=== PATIENT | female | born 1960 | race African-American/Black ===

== ENCOUNTER 2019-11-01 16:00 | Inpatient (IN) | payer MEDICAID ==
[~2019-11-01] VITALS: Ht 160 cm; Wt 118.8 kg
[~2019-11-01 16:00] MED LIST: BENAZEPRIL HCL20 MG ORAL; DEPAKOTE500 MG PO; HYDROCHLOROTHIA25 MG ORAL; PROLIXIN10 MG ORAL
[2019-11-01 16:12] VITALS: BP 171/67
--- NOTE | 2019-11-01 16:12 | NUR ---
ED Nurse Note: pt ambulated into ed from home CO SOB x 3-4 weeks d/t previous hx of COPD. Pt denies fever, n/v/d, cough, runny nose, chest pain. Pt HR elevated upon initial assessment with spo2 84% on RA; ERMD aware. ERmd at bedside.
--- NOTE | 2019-11-01 16:20 | NUR ---
ED Nurse Note: ekg performed by DIRECTOR OF TEACHING AND LEARNING
--- NOTE | 2019-11-01 16:36 | NUR ---
ED Nurse Note: IV fluids running, pt tolerating well. no ss of distress noted.
[2019-11-01 16:41] LABS: BASOPHILS % (AUTO) 2.6 % (0.0-2.0); EOSINOPHILS % (AUTO) 0.7 % (0.0-3.0); HEMATOCRIT 42.3 % (37.0-47.0); HEMOGLOBIN 13.2 G/DL (12.0-16.0); LYMPHOCYTES % (AUTO) 28.6 % (20.0-45.0); MEAN CORPUSCULAR VOLUME 88 FL (80-99); MONOCYTES % (AUTO) 6.8 % (1.0-10.0); NEUTROPHILS % (AUTO) 61.2 % (45.0-75.0); PLATELET COUNT 213 K/UL (150-450); WHITE BLOOD COUNT 9.2 K/UL (4.8-10.8)
--- NOTE | 2019-11-01 16:43 | NUR ---
ED Nurse Note: xray at bedside
--- NOTE | 2019-11-01 16:54 | Diagnostic Imaging Report ---
Indication: Shortness of breath Technique: One view of the chest Comparison: none Findings: The heart is enlarged. There is mild pulmonary venous congestion bilaterally. No focal airspace consolidation. No definite effusions. Impression: Cardiomegaly Mild interstitial congestion
[2019-11-01] MEDS ORDERED: Solu-MEDROL 125mg Inj IVP ONE (17:00)
[2019-11-01] MEDS ORDERED: Azithromycin 500 MG in NS 275 ML IV ONE (17:00)
[2019-11-01 17:04] LABS: ANION GAP 10 mmol/L (5-15); BLOOD UREA NITROGEN 8 mg/dL (7-18); CALCIUM 9.6 MG/DL (8.5-10.1); CARBON DIOXIDE 33 MMOL/L (21-32); CHLORIDE 103 MMOL/L (98-107); CREATININE 0.9 MG/DL (0.55-1.30); POTASSIUM 2.9 MMOL/L (3.5-5.1); SODIUM 146 MMOL/L (136-145)
[2019-11-01 17:17] LABS: ALANINE AMINOTRANSFERASE 15 U/L (12-78); ALBUMIN 3.3 G/DL (3.4-5.0); ALBUMIN/GLOBULIN RATIO 0.7 (1.0-2.7); ALKALINE PHOSPHATASE 76 U/L (46-116); ASPARTATE AMINO TRANSFERASE 18 U/L (15-37); BILIRUBIN,TOTAL 0.5 MG/DL (0.2-1.0); CKMB 1.9 NG/ML (0.0-3.6); CREATINE KINASE 170 U/L (26-308)
--- NOTE | 2019-11-01 17:20 | NUR ---
ED Nurse Note: pt moved to Ortho in stable condition.
[2019-11-01] MEDS ORDERED: KLONOPIN1 MG ORAL (17:45)
--- NOTE | 2019-11-01 17:59 | Emergency Room Report ---
History of Present Illness General Chief Complaint: Dyspnea/Respdistress Source: Patient, Medical Record Present Illness HPI 59-year-old female history of COPD, presented for shortness of breath. She said shortness of breath and cough for about 3 weeks gradually worsening. She denied any fever vomiting or abdominal pain. She denies any chest pain. She complains of intermittent wheezing but none at this time. She denies any recent travel or sick contacts. Allergies: Coded Allergies: CODEINE (Verified Allergy, Unknown, 11/01/19) COVID-19 Screening Contact w/high risk pt: No Recent Travel to affected area: No Experienced COVID-19 symptoms?: Yes COVID-19 symptoms experienced: Shortness of Breath Patient History Now: No Reviewed Nursing Documentation: PMH: Agreed; PSxH: Agreed Nursing Documentation-PMH Hx Hypertension: Yes Hx COPD: Yes Review of Systems All Other Systems: negative except mentioned in HPI Physical Exam Vital Signs Date Time Temp Pulse Resp B/P (MAP) Pulse Ox O2 Delivery O2 Flow Rate FiO2 11/01/19 16:02 97.9 70 24 171/67 (101) 81 Room Air 11/01/19 16:12 4.0 Sp02 EP Interpretation: reviewed, normal General Appearance: well appearing, mild distress Head: normocephalic, atraumatic Eyes: bilateral eye PERRL, bilateral eye EOMI ENT: hearing grossly normal, moist mucus membranes Neck: full range of motion, supple Respiratory: other - Mild respiratory distress with active coughing. Scant audible wheezing Cardiovascular #1: normal peripheral pulses, regular rate, rhythm, no murmur Gastrointestinal: non tender, soft, non-distended, no guarding Neurologic: alert, oriented x3, no focal defects Skin: normal color, warm/dry Medical Decision Making Diagnostic Impression: Primary Impression: Shortness of breath Additional Impressions: Rule out covid-19 COPD exacerbation ER Course Patient presented for shortness of breath. Differential diagnosis included but not limited to COPD exacerbation, viral syndrome, pneumonia, CHF, coronavirus infection to name a few. On exam patient in mild respiratory distress and actively coughing. She was placed on oxygen. She was hypoxic on room air. She required 5 L via nasal cannula. Chest x-ray showed cardiomegaly with interstitial prominence. Patient had no leukocytosis. I did send coronavirus testing due to patient's hypoxia and cough for the past 3 weeks. She was afebrile. Due to her hypoxia shortness of breath will admit to the telemetry floor under isolation. Patient was given steroids, azithromycin in the ER. Laboratory Tests Test 11/01/19 16:10 White Blood Count 9.2 K/UL (4.8-10.8) Red Blood Count 4.80 M/UL (4.20-5.40) Hemoglobin 13.2 G/DL (12.0-16.0) Hematocrit 42.3 % (37.0-47.0) Mean Corpuscular Volume 88 FL (80-99) Mean Corpuscular Hemoglobin 27.5 PG (27.0-31.0) Mean Corpuscular Hemoglobin Concent 31.2 G/DL (32.0-36.0) L Red Cell Distribution Width 20.0 % (11.6-14.8) H Platelet Count 213 K/UL (150-450) Mean Platelet Volume 7.8 FL (6.5-10.1) Neutrophils (%) (Auto) 61.2 % (45.0-75.0) Lymphocytes (%) (Auto) 28.6 % (20.0-45.0) Monocytes (%) (Auto) 6.8 % (1.0-10.0) Eosinophils (%) (Auto) 0.7 % (0.0-3.0) Basophils (%) (Auto) 2.6 % (0.0-2.0) H Sodium Level 146 MMOL/L (136-145) H Potassium Level 2.9 MMOL/L (3.5-5.1) L Chloride Level 103 MMOL/L (98-107) Carbon Dioxide Level 33 MMOL/L (21-32) H Anion Gap 10 mmol/L (5-15) Blood Urea Nitrogen 8 mg/dL (7-18) Creatinine 0.9 MG/DL (0.55-1.30) Estimated Glomerular Filtration Rate > 60 mL/min (>60) Glucose Level 135 MG/DL (74-106) H Lactic Acid Level Pending Calcium Level 9.6 MG/DL (8.5-10.1) Magnesium Level 1.6 MG/DL (1.8-2.4) L Total Bilirubin 0.5 MG/DL (0.2-1.0) Aspartate Amino Transferase (AST) 18 U/L (15-37) Alanine Aminotransferase (ALT) 15 U/L (12-78) Alkaline Phosphatase 76 U/L (46-116) Total Creatine Kinase 170 U/L (26-308) Creatine Kinase MB 1.9 NG/ML (0.0-3.6) Creatine Kinase MB Relative Index 1.1 Troponin I 0.009 ng/mL (0.000-0.056) Pro-B-Type Natriuretic Peptide Pending Total Protein 8.0 G/DL (6.4-8.2) Albumin 3.3 G/DL (3.4-5.0) L Globulin 4.7 g/dL Albumin/Globulin Ratio 0.7 (1.0-2.7) L EKG Diagnostic Results Rate: tachycardiac Rhythm: other - Sinus tachycardia ST Segments: other - Sinus tachycardia Chest X-Ray Diagnostic Results Chest X-Ray Diagnostic Results : Chest X-Ray Ordered: Yes # of Views/Limited/Complete: 1 View Indication: Shortness of Breath EP Interpretation: Yes Interpretation: other - Cardiomegaly, interstitial edema, no pneumothorax Electronically Signed by: Devante St MD Last Vital Signs Date Time Temp Pulse Resp B/P (MAP) Pulse Ox O2 Delivery O2 Flow Rate FiO2 11/01/19 16:12 97.9 100 24 171/67 81 Room Air 11/01/19 16:12 4.0 Status: improved Disposition: ADMITTED INPATIENT Condition: Serious Referrals: [facility],REFERRING (PCP) Devante St M.D. Nov 01, 2019 17:58
[2019-11-01 18:00] VITALS: BP 166/71
--- NOTE | 2019-11-01 18:00 | NUR ---
ED Nurse Note: received patient from mickie ochoa. patient resting in bed with no acute distress. patient ao4 vss. discussed plan of care with patient ; aware of pending admission. pt states anxiety over situation; provided therapeutic communication. patient states understanding and willingness of continuity of care. iv intact and patent; fluids running as prescribed. lactic reflex collected; sent down to lab.
[2019-11-01] MEDS ORDERED: Nitroglycerin Subl 0.4mg tab SL PRN (19:45)
[2019-11-01] MEDS ORDERED: LORazepam Inj 2mg/ml 1ml IV PRN (19:45)
[2019-11-01] MEDS ORDERED: Albuterol/Ipratropium 3ml neb HHN PRN (19:45)
--- NOTE | 2019-11-01 20:00 | NUR ---
ED Nurse Note: per ermd, pt allowed to eat. provided patient with nourishment. reassessed vitals; vss. repositioned for comfort. will continue to monitor.
[2019-11-01 20:04] VITALS: BP 142/92
[2019-11-01] MEDS: Heparin 5000 units/ml inj SUBQ SCH (21:00)
[2019-11-01] MEDS: Theophylline ER 100mg ORAL SCH (21:00)
--- NOTE | 2019-11-01 21:00 | NUR ---
TRANSFER TO FLOOR: Patient transferred to [facility] 212-1 as ordered, per joceline munoz. Report given to rocio corado. patient stable for transfer. patient ao4. nad. vss. confirmed living situation with patient; address provided is [facility]. mrsa swab collected; sent down to lab. pt refused vre cre swab. patient transported to unit via gurney with edelmira and rn. patient sent with belongings and admission packet
--- NOTE | 2019-11-01 21:55 | NUR ---
NURSE NOTES: received patient from Marcos Krishna RN. patient resting in bed with no acute distress. patient ao4 vss. discussed plan of care with patient ;pt states anxiety over situation; provided therapeutic communication.. iv intact and patent; fluids running as prescribed. Will continue to monitor pt
[2019-11-01 22:00] VITALS: BP 150/90
[2019-11-01] MEDS ORDERED: Zoysn 3.37gm in NS 100ML IVPB SCH (22:00)
[2019-11-01] MEDS ORDERED: Piperacillin/Tazobactam 2.25 GM in D5W 55 ML IV SCH (22:00)
[2019-11-01] MEDS ORDERED: Sodium Chloride for KCL Premix X 4hrs IV SCH (23:00)
[2019-11-02] VITALS: BP 138/57
[2019-11-02] MEDS: Solu-MEDROL 125mg Inj IV SCH ×5 (00:04→18:11)
[2019-11-02] MEDS ORDERED: Zoysn 3.37gm in NS 100ML IVPB ONE (03:00)
[2019-11-02 04:00] VITALS: BP 140/83
--- NOTE | 2019-11-02 07:25 | NUR ---
HAND-OFF: Report given to CATHERINE Lewis.
[2019-11-02 08:00] VITALS: BP 141/88
--- NOTE | 2019-11-02 08:57 | NUR ---
CASE MANAGEMENT:REVIEW 59 YR OLD FEMALE WALKED INTO ER CC: SOB X3 WEEKS PMH: COPD SI: COPD EXACERBATION. R/O COVID 19 97.9 70 24 171/67 81% ON RA K-2.9 BNP+7724 IS: PLACED ON 4L/NC 1L NS BOLUS IV SOLUMEDROL IV AZITHROMYCIN COVID 19 INFLUENZA A&B : TELEMETRY DCP: PATIENT IS FROM TRANSITIONAL HOUSING PLAN: AWAIT COVID 19 RESULTS DROPLET PRECAUTIONS
[2019-11-02] MEDS: Heparin 5000 units/ml inj SUBQ SCH ×2 (09:00→21:00)
[2019-11-02] MEDS: Depakote 500mg tab ORAL SCH ×3 (09:00→18:21)
[2019-11-02] MEDS: Theophylline ER 100mg ORAL SCH ×2 (09:00→21:00)
--- NOTE | 2019-11-02 09:41 | NUR ---
*-* INSURANCE *-* ALL CLINICALS AND REVIEWS HAVE BEEN FAXED TO: [facility] F: [phone]
[2019-11-02] MEDS: Zoysn 3.37gm in NS 100ML IVPB SCH ×3 (11:00→19:00)
[2019-11-02 12:00] VITALS: BP 145/83
--- NOTE | 2019-11-02 12:58 | Consultation ---
History of Present Illness General Date patient seen: Nov 02, 2019 Chief Complaint: Dyspnea/Respdistress Present Illness HPI 59 year old female with hx of COPD, HTN, humongous facial mass/tumor, psychosis presented to ER with CC of sob and dry cough. she wanted to see if she has COVID infection Allergies: Coded Allergies: CODEINE (Verified Allergy, Unknown, 11/01/19) Medication History Scheduled Benazepril Hcl* (Benazepril Hcl*), 20 MG ORAL EVERY 12 HOURS, (Reported) Clonazepam* (Klonopin*), 1 MG ORAL DAILY, (Reported) Divalproex Sodium (Depakote), 500 MG PO BID, (Reported) Fluphenazine HCl (Fluphenazine HCl), 10 MG ORAL DAILY, (Reported) Hydrochlorothiazide* (Hydrochlorothiazide*), 25 MG ORAL DAILY, (Reported) Patient History Healthcare decision maker N Resuscitation status Full Code Advanced Directive on File Past Medical/Surgical History Past Medical/Surgical History: (1) COPD (chronic obstructive pulmonary disease) (2) HTN (hypertension) Review of Systems Constitutional: Reports: no symptoms All Other Systems: negative except mentioned in HPI Physical Exam General Appearance: WD/WN, no apparent distress, other - massive right sided facial mass/turmor Lines, tubes and drains: peripheral HEENT: normocephalic, atraumatic Neck: non-tender Respiratory/Chest: chest wall non-tender, lungs clear Abdomen: normal bowel sounds, non tender Genitourinary/Rectal: normal genital exam, heme negative stool Extremities: normal range of motion Last 24 Hour Vital Signs Date Time Temp Pulse Resp B/P (MAP) Pulse Ox O2 Delivery O2 Flow Rate FiO2 11/02/19 12:00 4.0 11/02/19 08:00 97.9 94 20 141/88 (105) 97 11/02/19 08:00 4.0 11/02/19 07:45 96 11/02/19 04:00 98.7 86 21 140/83 (102) 96 11/02/19 04:00 71 11/02/19 03:55 4.0 11/02/19 00:00 77 11/02/19 00:00 4.0 11/02/19 00:00 98.8 86 22 138/57 (84) 95 11/01/19 22:25 81 11/01/19 22:00 97.7 86 24 150/90 (110) 92 11/01/19 21:52 Nasal Cannula 4.0 11/01/19 21:20 98 11/01/19 21:00 97.9 82 22 144/92 96 Nasal Cannula 4.0 11/01/19 20:04 97.9 88 22 142/92 97 Nasal Cannula 4.0 11/01/19 18:00 97.9 99 22 166/71 90 Nasal Cannula 4.0 11/01/19 16:12 97.9 100 24 171/67 81 Room Air 11/01/19 16:12 100 24 Nasal Cannula 4.0 11/01/19 16:02 97.9 70 24 171/67 (101) 81 Room Air Intake and Output 11/01/19 11/02/19 19:00 07:00 Output Total 0 ml Balance 0 ml Output Stool Total 0 ml # Voids 2 Laboratory Tests Test 11/01/19 16:10 11/01/19 18:00 White Blood Count 9.2 K/UL (4.8-10.8) Red Blood Count 4.80 M/UL (4.20-5.40) Hemoglobin 13.2 G/DL (12.0-16.0) Hematocrit 42.3 % (37.0-47.0) Mean Corpuscular Volume 88 FL (80-99) Mean Corpuscular Hemoglobin 27.5 PG (27.0-31.0) Mean Corpuscular Hemoglobin Concent 31.2 G/DL (32.0-36.0) L Red Cell Distribution Width 20.0 % (11.6-14.8) H Platelet Count 213 K/UL (150-450) Mean Platelet Volume 7.8 FL (6.5-10.1) Neutrophils (%) (Auto) 61.2 % (45.0-75.0) Lymphocytes (%) (Auto) 28.6 % (20.0-45.0) Monocytes (%) (Auto) 6.8 % (1.0-10.0) Eosinophils (%) (Auto) 0.7 % (0.0-3.0) Basophils (%) (Auto) 2.6 % (0.0-2.0) H Sodium Level 146 MMOL/L (136-145) H Potassium Level 2.9 MMOL/L (3.5-5.1) L Chloride Level 103 MMOL/L (98-107) Carbon Dioxide Level 33 MMOL/L (21-32) H Anion Gap 10 mmol/L (5-15) Blood Urea Nitrogen 8 mg/dL (7-18) Creatinine 0.9 MG/DL (0.55-1.30) Estimat Glomerular Filtration Rate > 60 mL/min (>60) Glucose Level 135 MG/DL (74-106) H Lactic Acid Level 2.20 mmol/L (0.4-2.0) H 1.40 mmol/L (0.66-2.22) Calcium Level 9.6 MG/DL (8.5-10.1) Magnesium Level 1.6 MG/DL (1.8-2.4) L Total Bilirubin 0.5 MG/DL (0.2-1.0) Aspartate Amino Transf (AST/SGOT) 18 U/L (15-37) Alanine Aminotransferase (ALT/SGPT) 15 U/L (12-78) Alkaline Phosphatase 76 U/L (46-116) Total Creatine Kinase 170 U/L (26-308) Creatine Kinase MB 1.9 NG/ML (0.0-3.6) Creatine Kinase MB Relative Index 1.1 Troponin I 0.009 ng/mL (0.000-0.056) Pro-B-Type Natriuretic Peptide 7724 pg/mL (0-125) H Total Protein 8.0 G/DL (6.4-8.2) Albumin 3.3 G/DL (3.4-5.0) L Globulin 4.7 g/dL Albumin/Globulin Ratio 0.7 (1.0-2.7) L Microbiology Date/Time Source Procedure Growth Status 11/01/19 17:45 Nasal Nares - Final Complete 11/01/19 17:45 Nasal Nares - Final Complete Height (Feet): 5 Height (Inches): 3.00 Weight (Pounds): 262 Medications Current Medications Medications (Trade) Dose Ordered Sig/Brannon Route PRN Reason Start Time Stop Time Status Last Admin Dose Admin Albuterol/ Ipratropium (Albuterol/ Ipratropium) 3 ml EVERY 4 HOURS PRN HHN dyspnea 11/01/19 19:45 11/06/19 19:44 Clonazepam (KlonoPIN) 1 mg DAILY ORAL 11/02/19 09:00 11/09/19 08:59 11/02/19 09:00 Dextrose (Dextrose 50%) 25 ml Q30M PRN IV Hypoglycemia 11/01/19 19:45 01/30/20 19:44 Dextrose (Dextrose 50%) 50 ml Q30M PRN IV Hypoglycemia 11/01/19 19:45 01/30/20 19:44 Divalproex Sodium (Depakote) 500 mg BID ORAL 11/02/19 09:00 12/17/19 08:59 11/02/19 09:00 Fluphenazine HCl (Prolixin) 10 mg DAILY ORAL 11/02/19 09:00 12/17/19 08:59 UNV Heparin Sodium (Porcine) (Heparin 5000 units/ml) 5,000 units EVERY 12 HOURS SUBQ 11/01/19 21:00 12/16/19 20:59 11/02/19 09:00 Lorazepam (Ativan 2mg/ml 1ml) 0.5 mg Q4H PRN IV For Anxiety 11/01/19 19:45 11/08/19 19:44 Methylprednisolone Sodium Succinate (Solu-MEDROL) 60 mg EVERY 6 HOURS IV 11/02/19 00:00 01/31/20 00:00 11/02/19 11:31 Nitroglycerin (Ntg) 0.4 mg Q5M X 3 DOSES PRN SL Prn Chest Pain 11/01/19 19:45 12/01/19 19:44 Ondansetron HCl (Zofran) 4 mg Q6H PRN IVP Nausea & Vomiting 11/01/19 19:45 12/01/19 19:44 Piperacillin Sod/ Tazobactam Sod 3.375 gm/Sodium Chloride 110 ml @ 27.5 mls/hr Q8H IVPB 11/02/19 11:00 11/09/19 10:59 11/02/19 11:00 Temazepam (Restoril) 15 mg HSPRN PRN ORAL Insomnia 11/01/19 21:00 11/08/19 20:59 Theophylline (Rakesh-Dur) 100 mg EVERY 12 HOURS ORAL 11/01/19 21:00 01/30/20 20:59 11/02/19 09:00 Assessment/Plan Problem List: (1) Suspected COVID-19 virus infection ICD Codes: R68.89 - Other general symptoms and signs SNOMED: 192162871 (2) COPD exacerbation ICD Codes: J44.1 - Chronic obstructive pulmonary disease with (acute) exacerbation SNOMED: 655358481 (3) HTN (hypertension) ICD Codes: I10 - Essential (primary) hypertension SNOMED: 78637545 Assessment/Plan: cardiac evaluation b/o cardiomegaly, echocardiogram respiratory treatment f/u electrolytes Karina Mg MD Nov 02, 2019 12:58
--- NOTE | 2019-11-02 13:18 | NUR ---
NURSE NOTES: Patient stating "I feel fine, I want to go home. I have COPD, but no fever and they say if you do not have fever you dont have COVID." Educated pt about covid symptoms and incubation period. RN notified Dr. Mg of pt's request to leave AMA. Called Beth Tang CM about pt wanting to leave AMA and from board and care and pending COVID, MARITA Campos stated due to these factors we cannot let her go until we have the result because she could be infecting others. Notified Dr. Mg and primary nurse CATHERINE Muhammad and CN. Sabina Bush RN to speak with patient.
--- NOTE | 2019-11-02 13:20 | Consultation ---
Consult Note Consult Note 59yo woman PMH below presents from a detention with dry cough and sob for years. Pt admitted for COVID rule out. Pt denies any change in her sob. Reports cough. Very anxious. crying and asking if she has COVID. Denies fever, chills, night sweats, chest pain, diarrhea, dysuria, rash. ROS: per above PMH: COPD HTN facial mass, reports benign for years Psychosis SHx: Lives in detention heavy smoker, quit recently denies etoh or drug use FHx: noncontributory VS: reviewed Gen: NAD. well nourished. well hydrated HEENT: anicteric sclera. MMM. large R jaw mass CV: RRR. S1+S2. no rubs or gallop. Resp: RRR. rhonchi. wheezes. unlabored. Abd: soft. normoactive BS+. no rebound. no guarding Ext: no LE edema. no clubbing. no joint deformity Neuro: AAO. follows commands. answers questions appropriately. Skin: warm. dry. nondiaphoretic Psych: anxious. tearful. Labs: reviewed Imaging: reviewed Assessment: Afebrile No leukocytosis Acute hypoxic respiratory failure flu swab negative CXR: The heart is enlarged. There is mild pulmonary venous congestion bilaterally. No focal airspace consolidation. No definite effusions. COPD HTN facial mass, reports benign for years Psychosis Plan: continue zosyn #2 SP Azithromycin f/u COVID continue COVID isolation f/u sputum cx f/u MRSA screen f/u BCx monitor temp and CBC monitor resp status DW Kevin Vickers MD Nov 02, 2019 13:20
[2019-11-02 16:00] VITALS: BP 147/101
[2019-11-02 20:00] VITALS: BP 149/71
--- NOTE | 2019-11-02 20:20 | NUR ---
NURSE NOTES: received patient from CATHERINE Muhammad. patient resting in be, appears agitated and very restless. patient ao4 vss. discussed plan of care with patient ;pt states anxiety over situation and being in hospital,. would like to leave.; provided therapeutic communication.. iv removed by patient, will reinsert. Will continue to monitor pt
--- NOTE | 2019-11-02 21:13 | NUR ---
HAND-OFF: Report given to CATHERINE Bello. Pt in stable condition. Endorsed plan of care.
--- NOTE | 2019-11-02 21:40 | History & Physical ---
History and Physical History & Physicial job # [id number] Sae Perkins MD Nov 02, 2019 21:40
[2019-11-03] VITALS: BP 160/99
[2019-11-03] MEDS: Solu-MEDROL 125mg Inj IV SCH ×4 (00:19→17:03)
[2019-11-03] MEDS: Zoysn 3.37gm in NS 100ML IVPB SCH ×3 (02:40→18:39)
[2019-11-03 04:00] VITALS: BP 144/75
--- NOTE | 2019-11-03 04:00 | History and Physical Report ---
DATE OF ADMISSION: 11/01/2019 CHIEF COMPLAINT: Shortness of breath and cough. HISTORY OF PRESENT ILLNESS: This is a 59-year-old female with past medical history significant for COPD, chronic smoker, hypertension, facial mass, benign finding, psychosis, who presented to the emergency department complaining of shortness of breath and cough for several days. The patient stated that her symptoms got progressively worsening and decided to come to the hospital. Shortly after initial evaluation in the emergency, the patient was admitted to the hospital with acute COPD exacerbation with possible COVID-19 infection. The patient denies any shortness of breath at this time, however, reported cough, very anxious, crying, asking and nervous for the COVID infection. She denies any fever, chills, night sweats, chest pain, diarrhea, dysuria, or rash. PAST MEDICAL/PAST SURGICAL HISTORY: Significant for COPD, hypertension, facial mass, status post resection, benign psychosis. MEDICATIONS AT HOME: Please refer to medication reconciliation. ALLERGIES: To codeine. SOCIAL HISTORY: The patient has a history of smoking and denies any substance abuse. She quit smoking recently. Denies any alcohol abuse. Lives in a intermediate. FAMILY HISTORY: Noncontributory. REVIEW OF SYSTEMS: Mostly as above. Denies any dysuria, frequency, hematuria. Complaining about cough. Denies any hemoptysis or hematochezia. Denies any bright red blood per rectum. PHYSICAL EXAMINATION: VITAL SIGNS: On admission from the emergency department, temperature 97.9, pulse of 70, respirations 24, blood pressure 171/67. GENERAL: The patient is awake and responsive, in no acute distress. HEAD AND NECK: Pupils are equal and reactive to light. Extraocular muscles intact. Neck was supple. No JVD. LUNGS: Clear. No rales. Scattered wheezes were noted. ABDOMEN: Soft. HEART: Revealed S1 and S2. Regular rhythm. No murmur gallops. ABDOMEN: Soft, nondistended and nontender. Positive bowel sounds. EXTREMITIES: No cyanosis, clubbing or edema. NEUROLOGIC: Cranial nerves II through XII grossly normal. Motor is 5/5 in all extremities. Gait was intact. RECTAL/GENITOURINARY: Refused and deferred. PSYCHIATRIC: Mood and affect are anxious and tearful. LABORATORY DATA: On admission from the emergency department, WBC of 9.2, hemoglobin 13, hematocrit 42, and platelets 213. Sodium 146, potassium 2.9, chloride 103, bicarb 33, BUN is 8, creatinine 0.9, GFR greater than 60. Lactic acid 2.20, second one is 1.4. Troponin less than 0.009. ProBNP of 7724. Chest x-ray was noted to be cardiomegaly with mild interstitial congestion. Nasal swab for the influenza A and B negative. ASSESSMENT: 1. Shortness of breath and cough, possible due to the acute hypoxemic respiratory failure as a result of COVID-19 infection. 2. Acute COPD exacerbation. 3. Hypertension. 4. Psychosis. 5. Hypokalemia. PLAN: Admit the patient to telemetry for followup with the laboratory as well as culture for COVID-19, broad-spectrum antibiotic with Zosyn. We will follow up laboratory. Solu-Medrol 60 mg with IV q.6. Code status is Full Code. DVT prophylaxis, heparin subcutaneous. We follow up with Dr. Mg, Pulmonary Critical Care and Dr. Kevin Jaimes from Infectious Disease. Sae Perkins M.D. DR: Daisy JOB#: [id number] CC:
--- NOTE | 2019-11-03 07:22 | NUR ---
HAND-OFF: Report given to CATHERINE Velasco.
[2019-11-03 07:40] LABS: BASOPHILS % (AUTO) 1.2 % (0.0-2.0); HEMATOCRIT 38.2 % (37.0-47.0); HEMOGLOBIN 12.8 G/DL (12.0-16.0); LYMPHOCYTES % (AUTO) 21.6 % (20.0-45.0); MEAN CORPUSCULAR VOLUME 86 FL (80-99); MONOCYTES % (AUTO) 6.2 % (1.0-10.0); NEUTROPHILS % (AUTO) 70.9 % (45.0-75.0); PLATELET COUNT 222 K/UL (150-450); RED BLOOD COUNT 4.46 M/UL (4.20-5.40); RED CELL DISTRIBUTION WIDTH 18.1 % (11.6-14.8); WHITE BLOOD COUNT 8.6 K/UL (4.8-10.8)
--- NOTE | 2019-11-03 07:44 | NUR ---
NURSE NOTES: Received report from CATHERINE Yap. Patient in bed resting, no active s/s cardiac, respiratory distress noticed at this time. Patient AOx4, on 4L Nasal Cannula. IV on left hand 20G, asymptomatic, patent, intact. Bed in lowest position, side rails upx2, call light within reach, bed alarm on. Will continue to monitor.
[2019-11-03 08:00] VITALS: BP 144/82
[2019-11-03 08:06] LABS: ALANINE AMINOTRANSFERASE 16 U/L (12-78); ALBUMIN/GLOBULIN RATIO 0.7 (1.0-2.7); ALKALINE PHOSPHATASE 66 U/L (46-116); ANION GAP 8 mmol/L (5-15); ASPARTATE AMINO TRANSFERASE 14 U/L (15-37); BILIRUBIN,TOTAL 0.3 MG/DL (0.2-1.0); BLOOD UREA NITROGEN 17 mg/dL (7-18); CALCIUM 10.1 MG/DL (8.5-10.1); CARBON DIOXIDE 32 MMOL/L (21-32); CHLORIDE 103 MMOL/L (98-107); CREATININE 0.9 MG/DL (0.55-1.30); PHOSPHORUS 2.7 MG/DL (2.5-4.9); POTASSIUM 4.5 MMOL/L (3.5-5.1); SODIUM 143 MMOL/L (136-145)
[2019-11-03] MEDS: Theophylline ER 100mg ORAL SCH ×2 (08:22→21:29)
[2019-11-03] MEDS: Depakote 500mg tab ORAL SCH ×2 (08:22→17:03)
[2019-11-03] MEDS: FLUPHENAZINE 10 MG ORAL SCH (08:30)
[2019-11-03] MEDS: Heparin 5000 units/ml inj SUBQ SCH ×2 (08:38→21:28)
--- NOTE | 2019-11-03 11:08 | NUR ---
NURSE NOTES: Spoke to Shanice from Microbiology clarified 2nd specimen for COVID 19 sent out yesterday 11/02/19.
[2019-11-03 12:00] VITALS: BP 144/69
--- NOTE | 2019-11-03 12:02 | Internal Med Progress Note ---
Subjective Date of Service: Nov 03, 2019 Physician Name Richardson Barajas Attending Physician Sae Perkins MD Current Medications Medications (Trade) Dose Ordered Sig/Brannon Route PRN Reason Start Time Stop Time Status Last Admin Dose Admin Albuterol/ Ipratropium (Albuterol/ Ipratropium) 3 ml EVERY 4 HOURS PRN HHN dyspnea 11/01/19 19:45 11/06/19 19:44 Clonazepam (KlonoPIN) 1 mg DAILY ORAL 11/02/19 09:00 11/09/19 08:59 11/03/19 08:22 Dextrose (Dextrose 50%) 25 ml Q30M PRN IV Hypoglycemia 11/01/19 19:45 01/30/20 19:44 Dextrose (Dextrose 50%) 50 ml Q30M PRN IV Hypoglycemia 11/01/19 19:45 01/30/20 19:44 Divalproex Sodium (Depakote) 500 mg BID ORAL 11/02/19 09:00 12/17/19 08:59 11/03/19 08:22 Heparin Sodium (Porcine) (Heparin 5000 units/ml) 5,000 units EVERY 12 HOURS SUBQ 11/01/19 21:00 12/16/19 20:59 11/03/19 08:38 Lorazepam (Ativan 2mg/ml 1ml) 0.5 mg Q4H PRN IV For Anxiety 11/01/19 19:45 11/08/19 19:44 11/03/19 00:19 Methylprednisolone Sodium Succinate (Solu-MEDROL) 60 mg EVERY 6 HOURS IV 11/02/19 00:00 01/31/20 00:00 11/03/19 06:00 Nitroglycerin (Ntg) 0.4 mg Q5M X 3 DOSES PRN SL Prn Chest Pain 11/01/19 19:45 12/01/19 19:44 Ondansetron HCl (Zofran) 4 mg Q6H PRN IVP Nausea & Vomiting 11/01/19 19:45 12/01/19 19:44 Patient Own Medication (Patient's Own Med) 1 ea DAILY ORAL 11/03/19 09:00 12/03/19 08:59 11/03/19 08:30 Piperacillin Sod/ Tazobactam Sod 3.375 gm/Sodium Chloride 110 ml @ 27.5 mls/hr Q8H IVPB 11/02/19 11:00 11/09/19 10:59 11/03/19 02:40 Temazepam (Restoril) 15 mg HSPRN PRN ORAL Insomnia 11/01/19 21:00 11/08/19 20:59 Theophylline (Rakesh-Dur) 100 mg EVERY 12 HOURS ORAL 11/01/19 21:00 01/30/20 20:59 11/03/19 08:22 Allergies: Coded Allergies: CODEINE (Verified Allergy, Unknown, 11/01/19) ROS Limited/Unobtainable: No Constitutional: Reports: no symptoms HEENT: Reports: no symptoms Cardiovascular: Reports: no symptoms Respiratory: Reports: cough, shortness of breath Gastrointestinal/Abdominal: Reports: no symptoms Genitourinary: Reports: no symptoms Neurologic/Psychiatric: Reports: no symptoms Subjective 59 YO F admitted with shortness of breath. Now COPD exacerbation. Cover for Int [facility]-Dr Perkins Objective Last Vital Signs Date Time Temp Pulse Resp B/P (MAP) Pulse Ox O2 Delivery O2 Flow Rate FiO2 11/03/19 09:00 Nasal Cannula 4.0 11/03/19 08:00 97.6 123 21 144/82 (102) 92 Laboratory Tests Test 11/03/19 06:27 White Blood Count 8.6 K/UL (4.8-10.8) Red Blood Count 4.46 M/UL (4.20-5.40) Hemoglobin 12.8 G/DL (12.0-16.0) Hematocrit 38.2 % (37.0-47.0) Mean Corpuscular Volume 86 FL (80-99) Mean Corpuscular Hemoglobin 28.7 PG (27.0-31.0) Mean Corpuscular Hemoglobin Concent 33.5 G/DL (32.0-36.0) Red Cell Distribution Width 18.1 % (11.6-14.8) H Platelet Count 222 K/UL (150-450) Mean Platelet Volume 7.7 FL (6.5-10.1) Neutrophils (%) (Auto) 70.9 % (45.0-75.0) Lymphocytes (%) (Auto) 21.6 % (20.0-45.0) Monocytes (%) (Auto) 6.2 % (1.0-10.0) Eosinophils (%) (Auto) 0.0 % (0.0-3.0) Basophils (%) (Auto) 1.2 % (0.0-2.0) Erythrocyte Sedimentation Rate 15 MM/HR (0-30) Sodium Level 143 MMOL/L (136-145) Potassium Level 4.5 MMOL/L (3.5-5.1) Chloride Level 103 MMOL/L (98-107) Carbon Dioxide Level 32 MMOL/L (21-32) Anion Gap 8 mmol/L (5-15) Blood Urea Nitrogen 17 mg/dL (7-18) Creatinine 0.9 MG/DL (0.55-1.30) Estimat Glomerular Filtration Rate > 60 mL/min (>60) Glucose Level 148 MG/DL (74-106) H Calcium Level 10.1 MG/DL (8.5-10.1) Phosphorus Level 2.7 MG/DL (2.5-4.9) Magnesium Level 2.1 MG/DL (1.8-2.4) Total Bilirubin 0.3 MG/DL (0.2-1.0) Aspartate Amino Transf (AST/SGOT) 14 U/L (15-37) L Alanine Aminotransferase (ALT/SGPT) 16 U/L (12-78) Alkaline Phosphatase 66 U/L (46-116) C-Reactive Protein, Quantitative < 0.4 mg/dL (0.00-0.90) Total Protein 7.5 G/DL (6.4-8.2) Albumin 3.0 G/DL (3.4-5.0) L Globulin 4.5 g/dL Albumin/Globulin Ratio 0.7 (1.0-2.7) L Microbiology Date/Time Source Procedure Growth Status 11/01/19 16:20 Blood Blood Culture - Preliminary NO GROWTH AFTER 24 HOURS Resulted 11/01/19 16:10 Blood Blood Culture - Preliminary NO GROWTH AFTER 24 HOURS Resulted 11/01/19 17:45 Nasal Nares - Final Complete 11/01/19 17:45 Nasal Nares - Final Complete 11/01/19 15:00 Nasopharynx Coronavirus COVID-19 PCR ([facility]) - Final Complete Intake and Output 11/02/19 11/03/19 19:00 07:00 Intake Total 600 ml Balance 600 ml Intake Oral 600 ml # Voids 5 Objective PHYSICAL EXAMINATION: GENERAL: The patient is awake and responsive, in no acute distress. HEAD AND NECK: Pupils are equal and reactive to light. Extraocular muscles intact. Neck was supple. No JVD. LUNGS: Clear. No rales. Scattered wheezes were noted. ABDOMEN: Soft. HEART: Revealed S1 and S2. Regular rhythm. No murmur gallops. ABDOMEN: Soft, nondistended and nontender. Positive bowel sounds. EXTREMITIES: No cyanosis, clubbing or edema. NEUROLOGIC: Cranial nerves II through XII grossly normal. Motor is 5/5 in all extremities. Gait was intact. RECTAL/GENITOURINARY: Refused and deferred. PSYCHIATRIC: Mood and affect are anxious and tearful. Assessment/Plan Assessment/Plan ASSESSMENT: 1. Shortness of breath and cough 2. Acute COPD exacerbation. 3. Hypertension. 4. Psychosis. 5. Hypokalemia. PLAN: 1. Admit the patient to telemetry for followup with the laboratory as 2. COVID-19=negative; Influenza A & B negative 3. antibiotic = Zosyn. 4. Continue Solu-Medrol 60 mg with IV q.6. 5. Code status is Full Code. 6. DVT prophylaxis, heparin subcutaneous. 7. Dr. Mg=Pulmonary Critical Care 8. Dr. Kevin Jaimes = Infectious Disease. Richardson Barajas MD Nov 03, 2019 12:02
--- NOTE | 2019-11-03 14:05 | NUR ---
NURSE NOTES: Dr. Stapleton at the bedside made aware when patient sleep, HR decreased to 40 and when pt wakes up, HR increased to 130s. No new order received at this time. Will continue to monitor.
--- NOTE | 2019-11-03 14:33 | Cardiology Progress Note ---
Subjective Subjective [id number] Objective Last 24 Hour Vital Signs Date Time Temp Pulse Resp B/P (MAP) Pulse Ox O2 Delivery O2 Flow Rate FiO2 11/03/19 12:00 98.7 82 20 144/69 (94) 91 11/03/19 12:00 66 11/03/19 12:00 4.0 11/03/19 09:00 Nasal Cannula 4.0 11/03/19 08:00 4.0 11/03/19 08:00 97.6 123 21 144/82 (102) 92 11/03/19 08:00 96 11/03/19 04:00 4.0 11/03/19 04:00 97.4 93 21 144/75 (98) 93 11/03/19 04:00 80 11/03/19 00:00 4.0 11/03/19 00:00 97.9 93 20 160/99 (119) 98 11/02/19 21:00 Nasal Cannula 4.0 11/02/19 20:00 99.0 85 19 149/71 (97) 98 11/02/19 16:00 4.0 11/02/19 16:00 97.9 101 22 147/101 (116) 90 Intake and Output 11/02/19 11/03/19 19:00 07:00 Intake Total 600 ml Balance 600 ml Intake Oral 600 ml # Voids 5 Laboratory Tests Test 11/03/19 06:27 White Blood Count 8.6 K/UL (4.8-10.8) Red Blood Count 4.46 M/UL (4.20-5.40) Hemoglobin 12.8 G/DL (12.0-16.0) Hematocrit 38.2 % (37.0-47.0) Mean Corpuscular Volume 86 FL (80-99) Mean Corpuscular Hemoglobin 28.7 PG (27.0-31.0) Mean Corpuscular Hemoglobin Concent 33.5 G/DL (32.0-36.0) Red Cell Distribution Width 18.1 % (11.6-14.8) H Platelet Count 222 K/UL (150-450) Mean Platelet Volume 7.7 FL (6.5-10.1) Neutrophils (%) (Auto) 70.9 % (45.0-75.0) Lymphocytes (%) (Auto) 21.6 % (20.0-45.0) Monocytes (%) (Auto) 6.2 % (1.0-10.0) Eosinophils (%) (Auto) 0.0 % (0.0-3.0) Basophils (%) (Auto) 1.2 % (0.0-2.0) Erythrocyte Sedimentation Rate 15 MM/HR (0-30) Sodium Level 143 MMOL/L (136-145) Potassium Level 4.5 MMOL/L (3.5-5.1) Chloride Level 103 MMOL/L (98-107) Carbon Dioxide Level 32 MMOL/L (21-32) Anion Gap 8 mmol/L (5-15) Blood Urea Nitrogen 17 mg/dL (7-18) Creatinine 0.9 MG/DL (0.55-1.30) Estimat Glomerular Filtration Rate > 60 mL/min (>60) Glucose Level 148 MG/DL (74-106) H Calcium Level 10.1 MG/DL (8.5-10.1) Phosphorus Level 2.7 MG/DL (2.5-4.9) Magnesium Level 2.1 MG/DL (1.8-2.4) Total Bilirubin 0.3 MG/DL (0.2-1.0) Aspartate Amino Transf (AST/SGOT) 14 U/L (15-37) L Alanine Aminotransferase (ALT/SGPT) 16 U/L (12-78) Alkaline Phosphatase 66 U/L (46-116) C-Reactive Protein, Quantitative < 0.4 mg/dL (0.00-0.90) Total Protein 7.5 G/DL (6.4-8.2) Albumin 3.0 G/DL (3.4-5.0) L Globulin 4.5 g/dL Albumin/Globulin Ratio 0.7 (1.0-2.7) L Microbiology Date/Time Source Procedure Growth Status 11/01/19 16:20 Blood Blood Culture - Preliminary NO GROWTH AFTER 24 HOURS Resulted 11/01/19 16:10 Blood Blood Culture - Preliminary NO GROWTH AFTER 24 HOURS Resulted 11/01/19 17:45 Nasal Nares - Final Complete 11/01/19 17:45 Nasal Nares - Final Complete 11/01/19 15:00 Nasopharynx Coronavirus COVID-19 PCR ([facility]) - Final Complete Ally Stapleton MD Nov 03, 2019 14:32
[2019-11-03 16:00] VITALS: BP 147/84
--- NOTE | 2019-11-03 19:16 | NUR ---
HAND-OFF: Report given to CATHERINE Macedo. Endorsed plan of care.
--- NOTE | 2019-11-03 19:28 | NUR ---
NURSE NOTES: Received report from CATHERINE Velasco. Patient is awake sitting chairfast; resting comfortably. No signs of acute distress noted; denies pain at this time. On 4L nasal cannula. AOx4; able to make needs known. Ambulates with assistance. Checked IV site; patent and flushed. No erythema, bleeding, or infiltration noted. Bed at lowest position, brakes on, siderails up x3. Call light within reach. Will continue to monitor.
[2019-11-03 20:00] VITALS: BP 158/90
--- NOTE | 2019-11-03 20:17 | Infectious Diseases Prog Note ---
Assessment/Plan Assessment/Plan Afebrile No leukocytosis Acute hypoxic respiratory failure likely 2/2 COPD exacerbation flu swab negative CLARENCE-CoV PCR negative CXR: The heart is enlarged. There is mild pulmonary venous congestion bilaterally. No focal airspace consolidation. No definite effusions. COPD HTN facial mass, reports benign for years Psychosis Plan: DC zosyn #2. start doxycycline #1/2 SP Azithromycin ok to DC isolation once ready to go home f/u sputum cx f/u MRSA screen f/u BCx monitor temp and CBC monitor resp status DW RN Subjective Allergies: Coded Allergies: CODEINE (Verified Allergy, Unknown, 11/01/19) Subjective Afebrile. tearful states cough and sob are at her baseline Objective Vital Signs Last 24 Hour Vital Signs Date Time Temp Pulse Resp B/P (MAP) Pulse Ox O2 Delivery O2 Flow Rate FiO2 11/03/19 16:00 97.3 90 20 147/84 (105) 90 11/03/19 16:00 77 11/03/19 16:00 4.0 11/03/19 12:00 98.7 82 20 144/69 (94) 91 11/03/19 12:00 66 11/03/19 12:00 4.0 11/03/19 09:00 Nasal Cannula 4.0 11/03/19 08:00 4.0 11/03/19 08:00 97.6 123 21 144/82 (102) 92 11/03/19 08:00 96 11/03/19 04:00 4.0 11/03/19 04:00 97.4 93 21 144/75 (98) 93 11/03/19 04:00 80 11/03/19 00:00 4.0 11/03/19 00:00 97.9 93 20 160/99 (119) 98 11/02/19 21:00 Nasal Cannula 4.0 Height (Feet): 5 Height (Inches): 3.00 Weight (Pounds): 262 Objective Gen: NAD. well nourished. well hydrated HEENT: anicteric sclera. MMM. large R jaw mass CV: RRR. S1+S2. no rubs or gallop. Resp: RRR. rhonchi. wheezes. unlabored. Neuro: AAO. follows commands. answers questions appropriately. Microbiology Date/Time Source Procedure Growth Status 11/01/19 16:20 Blood Blood Culture - Preliminary NO GROWTH AFTER 24 HOURS Resulted 11/01/19 16:10 Blood Blood Culture - Preliminary NO GROWTH AFTER 24 HOURS Resulted 11/01/19 17:45 Nasal Nares - Final Complete 11/01/19 17:45 Nasal Nares - Final Complete 11/01/19 15:00 Nasopharynx Coronavirus COVID-19 PCR ([facility]) - Final Complete Laboratory Tests Test 11/03/19 06:27 White Blood Count 8.6 K/UL (4.8-10.8) Red Blood Count 4.46 M/UL (4.20-5.40) Hemoglobin 12.8 G/DL (12.0-16.0) Hematocrit 38.2 % (37.0-47.0) Mean Corpuscular Volume 86 FL (80-99) Mean Corpuscular Hemoglobin 28.7 PG (27.0-31.0) Mean Corpuscular Hemoglobin Concent 33.5 G/DL (32.0-36.0) Red Cell Distribution Width 18.1 % (11.6-14.8) H Platelet Count 222 K/UL (150-450) Mean Platelet Volume 7.7 FL (6.5-10.1) Neutrophils (%) (Auto) 70.9 % (45.0-75.0) Lymphocytes (%) (Auto) 21.6 % (20.0-45.0) Monocytes (%) (Auto) 6.2 % (1.0-10.0) Eosinophils (%) (Auto) 0.0 % (0.0-3.0) Basophils (%) (Auto) 1.2 % (0.0-2.0) Erythrocyte Sedimentation Rate 15 MM/HR (0-30) Sodium Level 143 MMOL/L (136-145) Potassium Level 4.5 MMOL/L (3.5-5.1) Chloride Level 103 MMOL/L (98-107) Carbon Dioxide Level 32 MMOL/L (21-32) Anion Gap 8 mmol/L (5-15) Blood Urea Nitrogen 17 mg/dL (7-18) Creatinine 0.9 MG/DL (0.55-1.30) Estimat Glomerular Filtration Rate > 60 mL/min (>60) Glucose Level 148 MG/DL (74-106) H Calcium Level 10.1 MG/DL (8.5-10.1) Phosphorus Level 2.7 MG/DL (2.5-4.9) Magnesium Level 2.1 MG/DL (1.8-2.4) Total Bilirubin 0.3 MG/DL (0.2-1.0) Aspartate Amino Transf (AST/SGOT) 14 U/L (15-37) L Alanine Aminotransferase (ALT/SGPT) 16 U/L (12-78) Alkaline Phosphatase 66 U/L (46-116) C-Reactive Protein, Quantitative < 0.4 mg/dL (0.00-0.90) Total Protein 7.5 G/DL (6.4-8.2) Albumin 3.0 G/DL (3.4-5.0) L Globulin 4.5 g/dL Albumin/Globulin Ratio 0.7 (1.0-2.7) L Current Medications Medications (Trade) Dose Ordered Sig/Brannon Route PRN Reason Start Time Stop Time Status Last Admin Dose Admin Albuterol/ Ipratropium (Albuterol/ Ipratropium) 3 ml EVERY 4 HOURS PRN HHN dyspnea 11/01/19 19:45 11/06/19 19:44 Clonazepam (KlonoPIN) 1 mg DAILY ORAL 11/02/19 09:00 11/09/19 08:59 11/03/19 08:22 Dextrose (Dextrose 50%) 25 ml Q30M PRN IV Hypoglycemia 11/01/19 19:45 01/30/20 19:44 Dextrose (Dextrose 50%) 50 ml Q30M PRN IV Hypoglycemia 11/01/19 19:45 01/30/20 19:44 Divalproex Sodium (Depakote) 500 mg BID ORAL 11/02/19 09:00 12/17/19 08:59 11/03/19 17:03 Heparin Sodium (Porcine) (Heparin 5000 units/ml) 5,000 units EVERY 12 HOURS SUBQ 11/01/19 21:00 12/16/19 20:59 11/03/19 08:38 Lorazepam (Ativan 2mg/ml 1ml) 0.5 mg Q4H PRN IV For Anxiety 11/01/19 19:45 11/08/19 19:44 11/03/19 00:19 Methylprednisolone Sodium Succinate (Solu-MEDROL) 60 mg EVERY 6 HOURS IV 11/02/19 00:00 01/31/20 00:00 11/03/19 17:03 Nitroglycerin (Ntg) 0.4 mg Q5M X 3 DOSES PRN SL Prn Chest Pain 11/01/19 19:45 12/01/19 19:44 Ondansetron HCl (Zofran) 4 mg Q6H PRN IVP Nausea & Vomiting 11/01/19 19:45 12/01/19 19:44 Patient Own Medication (Patient's Own Med) 1 ea DAILY ORAL 11/03/19 09:00 12/03/19 08:59 11/03/19 08:30 Piperacillin Sod/ Tazobactam Sod 3.375 gm/Sodium Chloride 110 ml @ 27.5 mls/hr Q8H IVPB 11/02/19 11:00 11/09/19 10:59 11/03/19 18:39 Temazepam (Restoril) 15 mg HSPRN PRN ORAL Insomnia 11/01/19 21:00 11/08/19 20:59 Theophylline (Rakesh-Dur) 100 mg EVERY 12 HOURS ORAL 11/01/19 21:00 01/30/20 20:59 11/03/19 08:22 Kevin Jaimes MD Nov 03, 2019 20:17
[2019-11-03] MEDS: Doxycycline Monohydrate 100mg ORAL SCH (21:29)
--- NOTE | 2019-11-03 23:29 | Consultation ---
DATE OF CONSULTATION: 11/03/2019 IDENTIFICATION: The patient is a 59-year-old female. The patient was brought on 11/01/2019. [facility]. HISTORY OF PRESENT ILLNESS: She was brought with worsening shortness of breath and lot of anxiety. The patient has COPD and she states that her shortness of breath is severe, but it is chronic pain. The patient from cardiac standpoint did not have any significant symptoms. HABITS: She is a heavy smoker. No alcohol or drug abuse. She reported that she quit couple of weeks ago. PAST MEDICAL HISTORY: Significant for facial mass and psychosis. REVIEW OF SYSTEMS: No orthopnea. No PND. No syncope. No palpitations. No chest pain. She has moderate lower extremity edema. She ambulates just a little bit around the room. She is unsteady on her gait and she is dizzy. PHYSICAL EXAMINATION: GENERAL: Revealed a female resting in bed. She is anxious, not in acute distress. VITAL SIGNS: Blood pressure 144/69, heart rate 82, temperature is normal, oxygen saturation on 2 liters is 92%. HEENT: PERRLA. EOMI. NECK: Neck veins are slightly distended. She has normal carotid upstrokes. LUNGS: Very poor air movement with some wheezing. BREASTS: No significant masses. HEART: Regular, very distant, possible S4. ABDOMEN: Obese, soft, nondistended. Bowel sounds are present. EXTREMITIES: Lower extremity, no edema. Distal pulses palpable but diminished. NEUROLOGIC: She appears to be intact. Psychiatrically she is oriented, but she is agitated and anxious. LABORATORY AND DIAGNOSTIC DATA: Her EKG shows sinus rhythm with minimal ST changes and her chest x-ray showed possible pulmonary vascular congestion. Lab data significant for WBC 8.6, hemoglobin 12.8, platelets 212. Chemistry is significant for glucose 148, otherwise unremarkable. Troponin was negative. IMPRESSION AND RECOMMENDATIONS: The patient has COPD. There is mild suspicion that she might be in a heart failure, although clinically she is very stable. We are going to follow her EKG. We are going to follow her clinically. I do not really think that the patient should be diuresed at this time, does not look again like she is in significant heart failure and she was treated with antibiotic and steroids and further recommendations from cardiac standpoint is going to be based on her echocardiogram. Thank you very much for your consultation. This consultation is done as a coverage for Dr. Tha Yates. Ally Stapleton M.D. DR: Iman JOB#: [id number] CC:
--- NOTE | 2019-11-03 23:45 | Consultation ---
DATE OF CONSULTATION: 11/03/2019 NOTE: INCOMPLETE DICTATION CARDIOLOGY CONSULTATION CONSULTING PHYSICIAN: Ally Stapleton M.D. PATIENT ID: This is a 59-year-old female, who was brought day before yesterday to the emergency department because of shortness of breath. The patient is also very anxious and afraid that she has COVID. She denies any chest pain, but she said she has significant shortness of breath. She has mild dry cough. She does not have orthopnea, does not have PND or palpitation. PAST MEDICAL HISTORY: Significant for COPD, hypertension, and psychiatric history. SOCIAL HISTORY: She lives in a nursing home. HABITS: She is a heavy smoker and she reports that she quit a couple of weeks ago. She denies any drug or alcohol abuse. REVIEW OF SYSTEMS: As in the history of present illness. She does not have fever, chills, muscle aches, headaches. She does not have loss of consciousness. No nausea, vomiting. Ally Stapleton M.D. DR: MONTSERRAT JOB#: [id number] CC:
[2019-11-04] VITALS: BP 155/96
[2019-11-04] MEDS: Solu-MEDROL 125mg Inj IV SCH ×3 (00:14→12:47)
--- NOTE | 2019-11-04 00:14 | NUR ---
NURSE NOTES: Attempted to scan 0000 dose of Solumedrol 60 mg IV medication several times, but unsuccessful.
[2019-11-04 04:00] VITALS: BP 135/76
[2019-11-04 04:28] LABS: BASOPHILS % (AUTO) 0.8 % (0.0-2.0); HEMATOCRIT 38.5 % (37.0-47.0); HEMOGLOBIN 12.5 G/DL (12.0-16.0); LYMPHOCYTES % (AUTO) 20.6 % (20.0-45.0); MEAN CORPUSCULAR VOLUME 85 FL (80-99); NEUTROPHILS % (AUTO) 74.6 % (45.0-75.0); PLATELET COUNT 199 K/UL (150-450); RED CELL DISTRIBUTION WIDTH 17.4 % (11.6-14.8); WHITE BLOOD COUNT 6.4 K/UL (4.8-10.8)
[2019-11-04 04:39] LABS: ANION GAP 4 mmol/L (5-15); BLOOD UREA NITROGEN 24 mg/dL (7-18); CALCIUM 9.7 MG/DL (8.5-10.1); CARBON DIOXIDE 35 MMOL/L (21-32); CHLORIDE 103 MMOL/L (98-107); POTASSIUM 4.4 MMOL/L (3.5-5.1); SODIUM 142 MMOL/L (136-145)
--- NOTE | 2019-11-04 07:55 | NUR ---
HAND-OFF: Report given to CATHERINE Tena. Patient is awake sitting on the edge of the bed eating breakfast. In stable condition.
[2019-11-04 08:00] VITALS: BP 130/80
--- NOTE | 2019-11-04 08:03 | NUR ---
NURSE NOTES: Patient sitting up at edge of bed, feet dangling, asking questions about being discharged, talking about some test that she needs, informed her that she already had her blood test, eating breakfast, no c/o pain, IV patent in left hand 20 gauge saline locked, bed in lowest position, call light within reach.
[2019-11-04] MEDS: Depakote 500mg tab ORAL SCH (09:53)
[2019-11-04] MEDS: Theophylline ER 100mg ORAL SCH (09:53)
[2019-11-04] MEDS: Doxycycline Monohydrate 100mg ORAL SCH (09:54)
[2019-11-04] MEDS: Heparin 5000 units/ml inj SUBQ SCH (09:54)
[2019-11-04] MEDS: FLUPHENAZINE 10 MG ORAL SCH (10:49)
[2019-11-04 12:00] VITALS: BP 147/90
--- NOTE | 2019-11-04 14:47 | Internal Med Progress Note ---
Subjective Date of Service: Nov 04, 2019 Physician Name Richardson Barajas Attending Physician Sae Perkins MD Current Medications Medications (Trade) Dose Ordered Sig/Brannon Route PRN Reason Start Time Stop Time Status Last Admin Dose Admin Albuterol/ Ipratropium (Albuterol/ Ipratropium) 3 ml EVERY 4 HOURS PRN HHN dyspnea 11/01/19 19:45 11/06/19 19:44 Clonazepam (KlonoPIN) 1 mg DAILY ORAL 11/02/19 09:00 11/09/19 08:59 11/04/19 09:52 Dextrose (Dextrose 50%) 25 ml Q30M PRN IV Hypoglycemia 11/01/19 19:45 01/30/20 19:44 Dextrose (Dextrose 50%) 50 ml Q30M PRN IV Hypoglycemia 11/01/19 19:45 01/30/20 19:44 Divalproex Sodium (Depakote) 500 mg BID ORAL 11/02/19 09:00 12/17/19 08:59 11/04/19 09:53 Doxycycline Monohydrate (Doxycycline Monohydrate) 100 mg EVERY 12 HOURS ORAL 11/03/19 21:00 11/10/19 20:59 11/04/19 09:54 Heparin Sodium (Porcine) (Heparin 5000 units/ml) 5,000 units EVERY 12 HOURS SUBQ 11/01/19 21:00 12/16/19 20:59 11/04/19 09:54 Lorazepam (Ativan 2mg/ml 1ml) 0.5 mg Q4H PRN IV For Anxiety 11/01/19 19:45 11/08/19 19:44 11/03/19 00:19 Methylprednisolone Sodium Succinate (Solu-MEDROL) 60 mg EVERY 6 HOURS IV 11/02/19 00:00 01/31/20 00:00 11/04/19 12:47 Nitroglycerin (Ntg) 0.4 mg Q5M X 3 DOSES PRN SL Prn Chest Pain 11/01/19 19:45 12/01/19 19:44 Ondansetron HCl (Zofran) 4 mg Q6H PRN IVP Nausea & Vomiting 11/01/19 19:45 12/01/19 19:44 Patient Own Medication (Patient's Own Med) 1 ea DAILY ORAL 11/03/19 09:00 12/03/19 08:59 11/04/19 10:49 Temazepam (Restoril) 15 mg HSPRN PRN ORAL Insomnia 11/01/19 21:00 11/08/19 20:59 Theophylline (Rakesh-Dur) 100 mg EVERY 12 HOURS ORAL 11/01/19 21:00 01/30/20 20:59 11/04/19 09:53 Allergies: Coded Allergies: CODEINE (Verified Allergy, Unknown, 11/01/19) ROS Limited/Unobtainable: No Constitutional: Reports: no symptoms HEENT: Reports: no symptoms Cardiovascular: Reports: no symptoms Respiratory: Reports: no symptoms Gastrointestinal/Abdominal: Reports: no symptoms Genitourinary: Reports: no symptoms Neurologic/Psychiatric: Reports: no symptoms Subjective 59 YO F admitted with shortness of breath. Now COPD exacerbation. Cover for Int Med-Dr Perkins Objective Last Vital Signs Date Time Temp Pulse Resp B/P (MAP) Pulse Ox O2 Delivery O2 Flow Rate FiO2 11/04/19 12:00 98.1 78 20 147/90 (109) 100 11/04/19 09:00 Nasal Cannula 4.0 Laboratory Tests Test 11/04/19 04:00 White Blood Count 6.4 K/UL (4.8-10.8) Red Blood Count 4.50 M/UL (4.20-5.40) Hemoglobin 12.5 G/DL (12.0-16.0) Hematocrit 38.5 % (37.0-47.0) Mean Corpuscular Volume 85 FL (80-99) Mean Corpuscular Hemoglobin 27.8 PG (27.0-31.0) Mean Corpuscular Hemoglobin Concent 32.5 G/DL (32.0-36.0) Red Cell Distribution Width 17.4 % (11.6-14.8) H Platelet Count 199 K/UL (150-450) Mean Platelet Volume 7.8 FL (6.5-10.1) Neutrophils (%) (Auto) 74.6 % (45.0-75.0) Lymphocytes (%) (Auto) 20.6 % (20.0-45.0) Monocytes (%) (Auto) 4.0 % (1.0-10.0) Eosinophils (%) (Auto) 0.0 % (0.0-3.0) Basophils (%) (Auto) 0.8 % (0.0-2.0) Sodium Level 142 MMOL/L (136-145) Potassium Level 4.4 MMOL/L (3.5-5.1) Chloride Level 103 MMOL/L (98-107) Carbon Dioxide Level 35 MMOL/L (21-32) H Anion Gap 4 mmol/L (5-15) L Blood Urea Nitrogen 24 mg/dL (7-18) H Creatinine 1.0 MG/DL (0.55-1.30) Estimat Glomerular Filtration Rate > 60 mL/min (>60) Glucose Level 171 MG/DL (74-106) H Calcium Level 9.7 MG/DL (8.5-10.1) Microbiology Date/Time Source Procedure Growth Status 11/01/19 16:20 Blood Blood Culture - Preliminary NO GROWTH AFTER 48 HOURS Resulted 11/01/19 16:10 Blood Blood Culture - Preliminary NO GROWTH AFTER 48 HOURS Resulted 11/01/19 20:45 Nasal Nares MRSA Culture - Final NO METHICILLIN RESISTANT STAPH AUREUS... Complete 11/01/19 17:45 Nasal Nares - Final Complete 11/01/19 17:45 Nasal Nares - Final Complete 11/01/19 15:00 Nasopharynx Coronavirus COVID-19 PCR ([facility]) - Final Complete Intake and Output 11/03/19 11/04/19 19:00 07:00 Intake Total 729.6 ml 340.4 ml Balance 729.6 ml 340.4 ml Intake Oral 720 ml 240 ml IV Total 9.6 ml 100.4 ml # Voids 7 4 # Bowel Movements 1 Objective PHYSICAL EXAMINATION: GENERAL: The patient is awake and responsive, in no acute distress. HEAD AND NECK: Pupils are equal and reactive to light. Extraocular muscles intact. Neck was supple. No JVD. LUNGS: Clear. No rales. Scattered wheezes were noted. ABDOMEN: Soft. HEART: Revealed S1 and S2. Regular rhythm. No murmur gallops. ABDOMEN: Soft, nondistended and nontender. Positive bowel sounds. EXTREMITIES: No cyanosis, clubbing or edema. NEUROLOGIC: Cranial nerves II through XII grossly normal. Motor is 5/5 in all extremities. Gait was intact. RECTAL/GENITOURINARY: Refused and deferred. PSYCHIATRIC: Mood and affect are anxious and tearful. Assessment/Plan Assessment/Plan ASSESSMENT: 1. Shortness of breath and cough 2. Acute COPD exacerbation. 3. Hypertension. 4. Psychosis. 5. Hypokalemia. PLAN: 1. Admit the patient to telemetry for followup with the laboratory as 2. COVID-19=negative; Influenza A & B negative 3. antibiotic = Zosyn. 4. decrease Solu-Medrol to 60 mg with IV q. day 5. Code status is Full Code. 6. DVT prophylaxis, heparin subcutaneous. 7. Dr. Mg=Pulmonary Critical Care 8. Dr. Kevin Jaimes = Infectious Disease. Richardson Barajas MD Nov 04, 2019 14:47
--- NOTE | 2019-11-04 16:04 | NUR ---
NURSE NOTES: Upon returning from my lunch break, patient was fully dressed and patient monitor was off. Dr. Richardson Barajas told me that he spoke with her and recommended one more day of treatment at the hospital. I explained to the patient that Dr. Richardson Barajas wanted her to stay another day. I informed her of the benefits and risks. I also told her she wasn't our prisoner, that she could sign out against medical advice. I called Too at her [facility] per patient request, and I explained to him that the second Covid-19 test was still pending. The patient agreed to stay. Too explained to me that she wanted to come home so she wouldn't miss the Easter dinner. The patient asked me to pray for her. I prayed for the patient.
--- NOTE | 2019-11-04 16:11 | NUR ---
TRANSFER TO FLOOR: Patient transferred to [facility], per Dr. Mario Alberto Hernandez. Report given to CATHERINE Dillon. Belongings and medications given to CATHERINE Dillon. Family and or S/O informed of transfer. Addendum: 11/04/19 at 1613 by GRANT TINOCO RN Error: Disregard, charted on wrong patient.
[2019-11-05] MEDS ORDERED: Solu-MEDROL 125mg Inj IV SCH (09:00)
--- NOTE | 2019-11-05 12:39 | NUR ---
*-* INSURANCE *-* ALL CLINICALS AND REVIEWS HAVE BEEN FAXED WITH EXCEPTION OF DISCHARGE SUMMARY NO TIN THE SYSTEM. [facility] CM: MADELIN REF# [id number] P: [phone] F: [phone]
--- NOTE | 2019-11-05 16:43 | NUR ---
*-*INSURANCE *-* NO DISCHARGE SUMMARY IN THE SYSTEM UNABLE TO FAX
--- NOTE | 2019-11-06 10:29 | NUR ---
*-*INSURANCE *-* NO DISCHARGE SUMMARY IN THE SYSTEM UNABLE TO FAX
--- NOTE | 2019-11-06 12:10 | Discharge Summary ---
Discharge Summary Discharge Summary _ DATE OF ADMISSION: 11/01/2019 DATE OF DISCHARGE: 11/04/2019 Patient left AGAINST MEDICAL ADVICE REASON FOR ADMISSION: 59 years old female with past medical history of COPD, hypertension, psychosis, heavy smoker, who resides in a correction, presented to emergency room for evaluation due to shortness of breath. Patient reported shortness of breath and cough for about 3 weeks. Symptoms gradually worsened. Patient also had intermittent wheezing, but none upon presentation to ED. Patient denied fever or chills. She denied chest pain. Patient denied vomiting or abdominal pain. Patient denied any recent travel or sick contacts. Upon evaluation patient was afebrile, tachypneic, hypoxic and hypertensive, requiring high flow of supplemental oxygen . Laboratory work-up revealed no leukocytosis, stable hemoglobin ,hematocrit and platelet count. No lymphopenia. Potassium 2.9, sodium 146. Magnesium 1.6. Stable renal parameters. Troponin 0.00, pro BNP 7724. EKG reveals sinus tachycardia, no acute ischemic changes. Lactic acid 2.2. Influenza screen was negative Chest x-ray demonstrated cardiomegaly with mild interstitial congestion. In emergency room patient started on supplemental oxygen , received steroids and empiric antibiotic. ue to persistent symptoms for 3-week patient was tested for COVID-19 and admitted to telemetry floor to isolation room. CONSULTANTS: records management associate Dr. Stapleton pulmonary Dr. Mg ID specialist Dr. Jaimes [facility] COURSE: Patient admitted to telemetry floor. Patient initially was kept on isolation. Supplemental oxygen and nebulizing treatment with bronchodilator provided. Patient was on empiric antibiotics. Trial of theophylline instituted. COVID-19 came back negative. Blood cultures were negative. DVT prophylaxis provided Job Lithographer seen and evaluated patient. Job Lithographer had a mild suspicion that patient may be in heart failure since clinically she was stable. Patient was followed-up with EKG. No need for diuresis . Echocardiogram was ordered. Electrolytes: potassium and magnesium were replaced. Nephrotoxins were avoided. ID specialist cleared the patient to discontinue isolation once ready to go home. Patient reported improvement in symptoms did not want to stay an additional day, as recommended by the attending. Patient remained afebrile ,no leukocytosis ,oxygenation improved. Potassium 4.4 , magnesium 2.1 after reaplcement. Patient decided to leave AGAINST MEDICAL ADVICE in order not to miss her Easter dinner at the correction. The risks and consequences of signing AGAINST MEDICAL ADVICE were discussed with patient in detail. Patient verbalized understanding, nevertheless signed AMA form and left. FINAL DIAGNOSES: Acute hypoxic respiratory failure likely due to COPD exacerbation COPD exacerbation Suspected COVID-19 infection Shortness of breath and cough due to acute COPD exacerbation Hypertension Hypokalemia Psychosis I have been assigned to dictate discharge summary for this account. I was not involved in the patient's management. Dora Garza NP Nov 06, 2019 12:10
--- NOTE | 2019-11-07 13:47 | NUR ---
*-* INSURANCE *-* DISCHARGE SUMMARY HAS BEEN FAXED TO: [facility] CM: MADELIN REF# [id number] P: [phone] F: [phone] & [facility] [place] F: [phone]
== END 2019-11-04 17:08 | disposition left against medical advice (07) | DRG 140 ==
LOC: EMR 16:29 → 2E 17:25 → EDBEDREQ 18:57 → 2E 21:59
DX: J44.1 Chronic obstructive pulmonary disease with (acute) exacerbation (principal); J96.01 Acute respiratory failure with hypoxia; E87.6 Hypokalemia; Z88.6 Allergy status to analgesic agent; Z87.891 Personal history of nicotine dependence; I10 Essential (primary) hypertension; F29 Unspecified psychosis not due to a substance or known physiological condition; R22.0 Localized swelling, mass and lump, head
CPT/HCPCS: 36415; 71045; 80048; 80053; 82550; 82553; 83605; 83735; 83880; 84100; 84484; 85025; 85651; 86140; 86710; 87040; 87081; 87635; 93005; 96361; 96365; 96375; 99285; J7030